=== PATIENT | male | born 1975 | race Caucasian/White ===

== ENCOUNTER → 2016-08-31 | Outpatient (CLI) | payer BC ==
--- NOTE | 2016-09-01 09:08 | EEG ---
DATE OF SERVICE: 08/31/2016 INDICATIONS FOR EXAMINATION: Atypical episode of altered awareness. AGE: 41Y DESCRIPTION OF PROCEDURE: This EEG was performed using a 21 channel digital electroencephalograph following international 10-20 system. DESCRIPTION OF THE RECORDING: From the beginning of the tracing, with the patient's eyes closed, the background rhythm was mostly consisting of 9 Hz alpha frequency in the posterior occipital leads. No obvious asymmetry is seen. Occasional movement artifacts are noticed. Photic stimulation was performed with a good driving response seen. No pathological waves were elicited. Hyperventilation was performed with a good buildup of amplitude seen. Again, no pathological waves were elicited. The patient remains awake throughout the tracing. No epileptiform discharges were seen. His EKG lead showed regular rate and rhythm. INTERPRETATION: This awake EEG can be considered within normal limits. There was no asymmetry seen. No epileptiform discharges were noticed. The absence of epileptiform discharges does not rule out the diagnosis of epilepsy, therefore, clinical correlation is recommended.
== END | disposition home or self-care (01) ==
LOC: NEUROMAIN 12:44
PROVIDERS: ATTEND Psychiatry & Neurology Neurology
DX: R40.4 Transient alteration of awareness (principal)
CPT/HCPCS: 95816

== ENCOUNTER → 2020-12-24 | Outpatient (CLI) | payer BC ==
--- NOTE | 2020-12-24 12:13 | MR ---
EXAMINATION TYPE: MR knee RT wo con DATE OF EXAM: 12/24/2020 COMPARISON: None HISTORY: R knee pain TECHNIQUE: Multiplanar, multisequence images of the knee is performed without IV contrast. 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 Anterior horn is u nremarkable. LATERAL MENISCUS: Anterior and posterior horns are intact without tear. CRUCIATE LIGAMENTS: The anterior and posterior cruciate ligaments are intact and unremarkable. COLLATERAL LIGAMENTS: The medial collateral ligament and lateral collateral ligament complex are inta ct and unremarkable. EXTENSOR MECHANISM: Visualized quadriceps and patellar tendons are intact. EFFUSION: No significant suprapatellar joint effusion. POPLITEAL CYST: No popliteal/mathur cyst. TRICOMPARTMENT SPACES: Moderate narrowing medial tibiofemoral space. CARTILAGE: Cartilaginous thinning medial femoral condyle with subchondral cyst formation posteriorly. BONE MARROW SIGNAL: No focal abnormal marrow signal is appreciated. OTHER: No additional significant abnormality is appreciated. 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 2. Degenerative change of osteoarthritis.
== END | disposition home or self-care (01) ==
LOC: RADMRIMAIN 11:08
PROVIDERS: ATTEND Orthopaedic Surgery
DX: M17.11 Unilateral primary osteoarthritis, right knee (principal)

== ENCOUNTER → 2021-01-22 | Outpatient (CLI) | payer BC ==
--- NOTE | 2021-02-04 15:34 | HP ---
HISTORY AND PHYSICAL DATE OF SURGERY: 02/05/2021 Karan Mathis is a 45-year-old gentleman seen with progressive right knee pain. We discussed options for treatment. He elected to proceed with arthroscopy. Consent was obtained. PAST MEDICAL HISTORY: Asthma. PAST SURGICAL HISTORY: Left total knee arthroplasty. MEDICATIONS: Xanax. ALLERGIES: LORTAB. SOCIAL HISTORY: Denies tobacco use. PHYSICAL EXAMINATION: Evaluation of the right knee is range of motion is -3/4 to 120. Mild effusion. Tenderness medial joint line. Crepitus medial patellofemoral compartments range of motion. Ligaments stable. Hip rotation without pain. Positive medial Margarette's. RADIOGRAPHS: Left knee radiographs revealed mild osteoarthritis. MRI right knee revealed abnormal since the medial meniscus and degenerative changes of the medial compartment. IMPRESSION: 1. Internal derangement right knee with osteochondral tear versus meniscal tear. 2. Asthma. PLAN: Right knee arthroscopy with chondroplasty, possible partial meniscectomy and debridement. MMODL / IJN: [id number] /
== END | disposition home or self-care (01) ==
LOC: LABPAT 13:06
PROVIDERS: ATTEND Orthopaedic Surgery
DX: Z53.9 Procedure and treatment not carried out, unspecified reason (principal)

== ENCOUNTER 2021-02-05 10:52 | Day surgery (SDC) | payer BC ==
[2021-02-03 15:24] VITALS: BMI 24.3
[2021-02-05 12:29] VITALS: TEMP 96.9
[2021-02-05 13:11] VITALS: RESP 20
[2021-02-05 14:04] VITALS: BP 133/82; PULSE 71
== END 2021-02-05 14:05 | disposition home or self-care (01) ==
LOC: OR 10:52
PROVIDERS: ATTEND Orthopaedic Surgery
DX: S83.281A Other tear of lateral meniscus, current injury, right knee, initial encounter (principal); S83.261A Peripheral tear of lateral meniscus, current injury, right knee, initial encounter; J45.909 Unspecified asthma, uncomplicated; Z98.1 Arthrodesis status; Z79.899 Other long term (current) drug therapy; Z88.8 Allergy status to other drugs, medicaments and biological substances; M19.90 Unspecified osteoarthritis, unspecified site; F41.9 Anxiety disorder, unspecified; K21.9 Gastro-esophageal reflux disease without esophagitis
CPT/HCPCS: 29881; 29876; 80051; 85025; 36415; J2250; J1100; J0690; J2405; J2001; J3010; J1885; J2704; J1170

== ENCOUNTER → 2022-02-12 | Outpatient (CLI) | payer OTHER ==
--- NOTE | 2022-02-12 13:07 | US ---
EXAMINATION TYPE: US venous doppler duplex LE LT DATE OF EXAM: 02/12/2022 12:53 PM COMPARISON: NONE CLINICAL HISTORY: LLL swelling R60.0. Pain and swelling x 1 week. No hx of DVT. Patient does not take blood thinners. SIDE PERFORMED: Left TECHNIQUE: The lower extremity deep venous system is examined utilizing real time linear array sonog ashwin with graded compression, doppler sonography and color-flow sonography. VESSELS IMAGED: Common Femoral Vein Deep Femoral Vein Greater Saphenous Vein * Femoral Vein Popliteal Vein Small Saphenous Vein * Proximal Calf Veins (* superficial vessels) Left Leg: No evidence of DVT in veins imaged at this time. Complex area seen near popliteal vessels posterior to the knee: 3.5 x 1.2 x 1.1 cm. IMPRESSION: 1. Left lower extremity ultrasound negative for deep venous thrombosis. 2. Complex popliteal cyst left posterior popliteal space.
[2022-02-12 19:06] LABS: Basophils # (A) 0.05 X 10*3/uL (0.00-0.10); Basophils % (A) 0.8 %; Eosinophils # (A) 0.55 X 10*3/uL (0.04-0.35); Eosinophils % (A) 8.9 %; HCT 42.6 % (39.6-50.0); HGB 14.4 g/dL (13.0-17.0); Immature Grans, Automated 0.3 %; Lymphocytes # (A) 2.28 X 10*3/uL (0.90-5.00); MCH 31.6 pg (27.0-32.0); MCHC 33.8 g/dL (32.0-37.0); MCV 93.4 fL (80.0-97.0); Mean Platelet Volume 11.6 fL (9.5-12.2); Monocytes # (A) 0.64 X 10*3/uL (0.20-1.00); Monocytes % (A) 10.4 %; NRBC Per 100 WBC 0 /100 WBCS (0.0-0.0); Neutrophils # (A) 2.62 X 10*3/uL (1.80-7.70); Neutrophils % (A) 42.6 %; Platelet Count 211 X 10*3/uL (140-440); RBC 4.56 X 10*6/uL (4.40-5.60); RDW 12.2 % (11.5-14.5); WBC 6.16 X 10*3/uL (4.50-10.00)
[2022-02-12 19:28] LABS: African American GFR (CKD) 91.5 (60.0-200.0); Albumin 4.4 g/dL (3.8-4.9); Albumin/Globulin Ratio 1.69 (1.60-3.17); Anion Gap 11.8 mmol/L (10.00-18.00); BUN/Creat Ratio 14.18 Ratio (12.00-20.00); Blood Urea Nitrogen 15.6 mg/dL (9.0-27.0); Calcium 9.1 mg/dL (8.7-10.3); Carbon Dioxide 26.2 mmol/L (20.0-27.5); Globulin 2.6 g/dL (1.6-3.3); Potassium 4.1 mmol/L (3.5-5.5); Total Bilirubin 0.3 mg/dL (0.30-1.20)
== END | disposition home or self-care (01) ==
LOC: RADUSWWP 12:19
PROVIDERS: ATTEND Family Medicine
DX: R60.0 Localized edema (principal); M71.22 Synovial cyst of popliteal space [Baker], left knee
CPT/HCPCS: 80053; 85025